=== PATIENT | male | born 1985 | race Caucasian/White ===

== ENCOUNTER 2020-07-26 22:32 | Inpatient (IN) ==
[2020-07-26] MEDS ORDERED: MULTI-VITAMIN INFUSION 10 ML, THIAMINE HCL 100 MG, FOLIC ACID 1 MG in SODIUM CHLORIDE 0... IV ONE (22:50)
[2020-07-26] MEDS ORDERED: dilTIAZem HCl 5 MG/ML 5 ML VIAL IV STA ×2 (22:50→23:32)
--- NOTE | 2020-07-26 22:58 | Emergency Department Note ---
Impression & Plan Atrial fibrillation with rapid ventricular response, Syncope and collapse ED Provider Note Name: GARY PIPER Age: 35 Sex: M Arrives Via: Ambulance Informant: Patient, EMS ED Provider: Kevin Nicolas MD Chief Complaint: Syncope Impression: Atrial Fibrillation with rapid ventricular response Syncope and Collapse Medical Decision Makin yr old male with history of alcoholism who arrives following syncopal/respiratory arrest. Complicating this is fact he was alcoholic when it happened, there were gummy bears in throat, and narcan given as he woke up. He does not remember choking and no report of choking prior to syncope. Narcan given as he woke up thus seems less likely that this was actual opioid overdose given no history and he is adamant no drug use. That said, given non-clarity initially he was given cardizem along with further IV fluids (banana bag). Patient not overtly ill appearing and not in extremis on arrival with stable BP thus no indication for immediate cardioversion. Discussion does seem he has been feeling a bit fatigued the last few days. No stroke findings on exam thus no indication for stroke alert/tpa at this time. Patient requiring 3 rounds IV cardizem and thus cardizem gtt and heparin ordered. HR steady in 80s thus cardizem gtt held. Just as heparin about to be started he converted to NSR. I opted to hold heparin and defer further anticoagulation to hospitalist team. He will need further monitoring and hospitalization regardless at this time. Triage/Nursing Notes reviewed by Me Additional history obtained from nursing/ems Differentials:Vasovagal event, dehydration, infection, hypoglycemia, electrolyte abnormalities, cardiac sources, intracerebral event, pulmonary embolism, seizure, toxicologic, neurologic, as well as other pathologies. Vital Signs: reviewed and remarkable for tachycardia Interventions: Saline lock, Cardizem 15mg IV x 3, Nss bolus 1 L, Banana bag 1 L IV Labs:Reviewed and remarkable for +etoh, mild lft elevation Imaging:X ray results are stated below per my interpretation: Chest: 1 view: No infiltrate, no effusion, normal cardiac border. [facility] Radiologist interpretation reviewed by me: CT head no acute findings EKG:Per My Interpretation: Indication AMS: Afib RVR 163 bpm, qtc 484. No ischemia, mild intraventricular delay, no previous for comparison Cardiac/Tele Monitoring: Cardiac Monitoring: An Order was placed for continuous cardiac monitoring. The monitor shows a rate of 160 with a afib rhythm. Consults:Dr Kodi Shepherd hospitalist Plan: Disposition:Hospitalization. Condition: Good Prescriptions:none PDMP: n/a History of Present Illness:35 yr old male with alcoholism arrives for evaluation of syncope. Patient notes he was drinking etoh and eating ice cream. He remembers taking a handful of gummy bears and the next thing he was waking up next to EMS. EMS reports patient had witnessed syncope by parents, stopped breathing and turned blue. 911 called and provided airway care, removed handful of gummy bears from mouth/throat and gave narcan 2mg NA. EMS noted patient started waking up as Narcan given, rather than after it was given. Patient notes he currently feels a bit lightheaded, mildly dyspneic and foggy. He denies chest pain, headache, nausea, vomiting, back pain, neck pain, weakness, urinary/ bowel issues, leg swelling, rashes, fevers, chills, nor other symptoms. He has not been tested nor been around any one he knows has covid. No recent trauma, injuries, falls. He drinks shots of vodka daily. Given Narcan and 1 L NSS en route. Denies history of irregular HR. He is certain he has been using no drugs. ROS: See above HPI for pertinent positives & negatives. A total of 10 systems reviewed and were otherwise negative. Past Medical History:Alcoholism Past Surgical History:Hernia repair Family History:Father: Lyme disease Social History:Daily etoh, vapes tobacco, works as machinist first class, lives with parents, unmarried Home Medications:None Allergies:NKDA Vitals:Blood Pressure: 127/105, Pulse 176, RR 25, T 36.9C, O2 96% on RA Physical Exam: GENERAL: Patient is tired/dishevelled appearing and in minimal distress. EYES: No scleral icterus, unremarkable pupils. ENT: Mucous membranes moist, no nasal congestion. NECK: No masses appreciated, nomeningismus, trachea is midline. RESPIRATORY: No dyspnea. Clear to auscultation and equal bilaterally. No wheeze, no rhonchi. CARDIOVASCULAR: Tachy, irregular.No murmurs, rubs, gallops appreciated. GASTROINTESTINAL: Abdomen soft, non-tender, no peritonitis.Bowel sounds positive.No masses appreciated. BACK: No midline tenderness, no CVA tenderness EXTREMITIES: Normal motion all extremities, no cyanosis, no edema. No calf swelling nor TTP NEUROLOGIC: Alert and oriented, no acute motor or sensory deficits, no focal weakness, cranial nerves grossly intact. SKIN: No rash, no jaundice, no diaphoresis. PSYCH: Appropriate GCS: 15 ED Course: Times/Reassessments: Feeling well. Multiple round cardizem to keep HR under control before reverting to NSR. Critical Care: I have personally spent 35 minutes of critical care time in the direct management of this patient. Afib RVR requiring multiple rounds cardizem. This was a life/limb threatening event. This 35 minutes is in excess of all separately billable procedures. 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 Beliefs That Will Affect Care: None Current Living Situation: Family Current Living Situation Comment: Parents Other Information That Helps Us Care for You: No Feels Safe at Home: Yes Safety Concerns: Feels Safe At This Time Assistive Devices: None Allergies Allergies Allergy/AdvReac Type Severity Reaction Status Date / Time No Known Allergies Allergy Mild Unverified 07/26/20 23:02 Home Meds Home Medications Medication Instructions Recorded Confirmed No Known Home Medications 07/26/20 07/26/20 Results & Data (ED) Vital Signs Vital Signs - 24 hr 07/26/20 22:39 07/26/20 22:42 07/26/20 22:49 Temperature 36.7 C Temperature Source Oral Pulse Rate 176 H 156 H 145 H Pulse Rate from SpO2 Sensor 139 H 123 H Respiratory Rate 24 16 15 Respiratory Effort / Characteristics Non-Labored Spontaneous Respiratory Depth Normal Respiratory Pattern Regular Blood Pressure 127/105 H 127/105 H 125/94 Blood Pressure Mean 112 112 104 Blood Pressure Position Sitting Pulse Oximetry 96 98 97 Oxygen Delivery Method Room Air Sepsis Recent Fever Within 48 Hours No Sepsis New/Unexplained Change in Mental Status No Sepsis Action Taken by Nursing Physician Notified 07/26/20 23:01 07/26/20 23:15 07/26/20 23:30 Temperature Temperature Source Pulse Rate 156 H 114 H 119 H Pulse Rate from SpO2 Sensor 124 H 103 H 98 H Respiratory Rate 18 15 14 Respiratory Effort / Characteristics Respiratory Depth Respiratory Pattern Blood Pressure 128/106 H 111/79 Blood Pressure Mean 113 89 Blood Pressure Position Pulse Oximetry 96 93 92 Oxygen Delivery Method Sepsis Recent Fever Within 48 Hours Sepsis New/Unexplained Change in Mental Status Sepsis Action Taken by Nursing 07/26/20 23:45 07/27/20 00:00 07/27/20 00:15 Temperature Temperature Source Pulse Rate 105 H 102 H 91 H Pulse Rate from SpO2 Sensor 104 H 87 Respiratory Rate 21 14 13 Respiratory Effort / Characteristics Respiratory Depth Respiratory Pattern Blood Pressure 118/80 Blood Pressure Mean 92 Blood Pressure Position Pulse Oximetry 97 93 Oxygen Delivery Method Sepsis Recent Fever Within 48 Hours Sepsis New/Unexplained Change in Mental Status Sepsis Action Taken by Nursing 07/27/20 00:30 07/27/20 00:45 07/27/20 01:00 Temperature Temperature Source Pulse Rate 106 H 90 100 H Pulse Rate from SpO2 Sensor 103 H 84 101 H Respiratory Rate 12 16 17 Respiratory Effort / Characteristics Respiratory Depth Respiratory Pattern Blood Pressure 105/79 120/95 Blood Pressure Mean 87 103 Blood Pressure Position Pulse Oximetry 97 98 97 Oxygen Delivery Method Sepsis Recent Fever Within 48 Hours Sepsis New/Unexplained Change in Mental Status Sepsis Action Taken by Nursing 07/27/20 01:30 Temperature Temperature Source Pulse Rate 89 Pulse Rate from SpO2 Sensor 89 Respiratory Rate 17 Respiratory Effort / Characteristics Respiratory Depth Respiratory Pattern Blood Pressure 102/67 Blood Pressure Mean 78 Blood Pressure Position Pulse Oximetry 93 Oxygen Delivery Method Sepsis Recent Fever Within 48 Hours Sepsis New/Unexplained Change in Mental Status Sepsis Action Taken by Nursing Laboratory Data Result diagrams: 07/27/20 05:21 07/26/20 22:50 Lab Results 07/26/20 07/26/20 07/26/20 Range/Units 22:50 22:50 22:50 WBC 9.41 (4.8-10.8) K/uL RBC 4.50 L (4.7-6.1) M/uL Hgb 15.1 (14.0-18.0) g/dL Hct 43.0 (42-52) % MCV 95.6 (80-100) fL MCH 33.6 (25-34) pg MCHC 35.1 (32-36) g/dL RDW Std Deviation 43.6 (36.4-46.3) fL RDW Coeff of Eric 12.6 (11.5-14.5) % Plt Count 304 (130-400) K/uL MPV 9.6 (7.4-10.4) fL Immature Gran % (Auto) 0.2 % Neut % (Auto) 67.8 % Lymph % (Auto) 25.4 % [place] % (Auto) 5.5 % Eos % (Auto) 1.0 % Baso % (Auto) 0.1 % Neut # (Auto) 6.38 (1.4-6.5) K/uL Lymph # (Auto) 2.39 (1.2-3.4) K/uL Berks # (Auto) 0.52 (0.11-0.59) K/uL Eos # (Auto) 0.09 (0-0.5) K/uL Baso # (Auto) 0.01 (0-0.2) K/uL Immature Gran # (Auto) 0.02 (0.00-0.02) K/uL PT 10.0 (9.0-12.0) Seconds INR 0.9 (0.9-1.1) D-Dimer 200 (0-500) ug/L FEU Sodium 138 (136-145) mmol/L Potassium 3.7 (3.5-5.1) mmol/L Chloride 106 (98-107) mmol/L Carbon Dioxide 28 (21-32) mmol/L Anion Gap 5.0 (3-11) BUN 16 (7-18) mg/dl Creatinine 1.05 (0.6-1.4) mg/dl Est Cr Clr Drug Dosing 102.1 ml/min Est GFR ( Amer) 105.3 Est GFR (Non-Af Amer) 90.9 BUN/Creatinine Ratio 14.9 (10-20) Glucose 133 H (70-99) mg/dl Calcium 8.8 (8.5-10.1) mg/dl Magnesium 1.8 (1.8-2.4) mg/dl Total Bilirubin 0.3 (0.2-1) mg/dl Direct Bilirubin < 0.1 (0-0.2) mg/dl AST 45 H (15-37) U/L ALT 94 H (12-78) U/L Alkaline Phosphatase 66 (45-117) U/L Total Creatine Kinase 139 (39-308) U/L CK-MB (CK-2) 1.7 (0.5-3.6) ng/ml CK/CKMB % Calc 1.2 (0-3.0) Troponin I < 0.015 (0-0.045) ng/ml Total Protein 8.1 (6.4-8.2) gm/dl Albumin 3.9 (3.4-5.0) gm/dl Lipase 217 (73-393) U/L Urine Color Urine Appearance (Clear) Urine pH (4.5-7.5) Ur Specific [place] (1.000-1.030) Urine Protein (Negative) Urine Glucose (UA) (Negative) Urine Ketones (Negative) Urine Blood (Negative) Urine Nitrite (Negative) Urine Bilirubin (Negative) Urine Urobilinogen (Negative) Ur Leukocyte Esterase (Negative) Urine Opiates Screen (Neg) Ur Methadone, Qual (Neg) Urine Barbiturates (Neg) Ur Phencyclidine (PCP) (Neg) U Amphetamin/Meth Scrn (Neg) MDMA (Ecstasy) Screen (Neg) U Benzodiazepines Scrn (Neg) Ur Cocaine Metabolite (Neg) U Marijuana (THC) Screen (Neg) Ethyl Alcohol mg/dL (0-3) mg/dl COVID-19 Eval Order SARS-CoV-2, RNA, NAAT (NEGATIVE) 07/26/20 07/26/20 07/26/20 Range/Units 22:50 22:50 23:04 WBC (4.8-10.8) K/uL RBC (4.7-6.1) M/uL Hgb (14.0-18.0) g/dL Hct (42-52) % MCV (80-100) fL MCH (25-34) pg MCHC (32-36) g/dL RDW Std Deviation (36.4-46.3) fL RDW Coeff of Eric (11.5-14.5) % Plt Count (130-400) K/uL MPV (7.4-10.4) fL Immature Gran % (Auto) % Neut % (Auto) % Lymph % (Auto) % [place] % (Auto) % Eos % (Auto) % Baso % (Auto) % Neut # (Auto) (1.4-6.5) K/uL Lymph # (Auto) (1.2-3.4) K/uL [place] # (Auto) (0.11-0.59) K/uL Eos # (Auto) (0-0.5) K/uL Baso # (Auto) (0-0.2) K/uL Immature Gran # (Auto) (0.00-0.02) K/uL PT (9.0-12.0) Seconds INR (0.9-1.1) D-Dimer (0-500) ug/L FEU Sodium (136-145) mmol/L Potassium (3.5-5.1) mmol/L Chloride (98-107) mmol/L Carbon Dioxide (21-32) mmol/L Anion Gap (3-11) BUN (7-18) mg/dl Creatinine (0.6-1.4) mg/dl Est Cr Clr Drug Dosing ml/min Est GFR ( Amer) Est GFR (Non-Af Amer) BUN/Creatinine Ratio (10-20) Glucose (70-99) mg/dl Calcium (8.5-10.1) mg/dl Magnesium (1.8-2.4) mg/dl Total Bilirubin (0.2-1) mg/dl Direct Bilirubin (0-0.2) mg/dl AST (15-37) U/L ALT (12-78) U/L Alkaline Phosphatase (45-117) U/L Total Creatine Kinase (39-308) U/L CK-MB (CK-2) (0.5-3.6) ng/ml CK/CKMB % Calc (0-3.0) Troponin I (0-0.045) ng/ml Total Protein (6.4-8.2) gm/dl Albumin (3.4-5.0) gm/dl Lipase (73-393) U/L Urine Color Yellow Urine Appearance Clear (Clear) Urine pH 6.5 (4.5-7.5) Ur Specific [place] 1.011 (1.000-1.030) Urine Protein Negative (Negative) Urine Glucose (UA) Negative (Negative) Urine Ketones Negative (Negative) Urine Blood Negative (Negative) Urine Nitrite Negative (Negative) Urine Bilirubin Negative (Negative) Urine Urobilinogen Negative (Negative) Ur Leukocyte Esterase Negative (Negative) Urine Opiates Screen Neg (Neg) Ur Methadone, Qual Neg (Neg) Urine Barbiturates Neg (Neg) Ur Phencyclidine (PCP) Neg (Neg) U Amphetamin/Meth Scrn Neg (Neg) MDMA (Ecstasy) Screen Neg (Neg) U Benzodiazepines Scrn Neg (Neg) Ur Cocaine Metabolite Neg (Neg) U Marijuana (THC) Screen Neg (Neg) Ethyl Alcohol mg/dL 89.0 H (0-3) mg/dl COVID-19 Eval Order SARS-CoV-2, RNA, NAAT (NEGATIVE) 07/26/20 07/26/20 Range/Units 23:59 23:59 WBC (4.8-10.8) K/uL RBC (4.7-6.1) M/uL Hgb (14.0-18.0) g/dL Hct (42-52) % MCV (80-100) fL MCH (25-34) pg MCHC (32-36) g/dL RDW Std Deviation (36.4-46.3) fL RDW Coeff of Eric (11.5-14.5) % Plt Count (130-400) K/uL MPV (7.4-10.4) fL Immature Gran % (Auto) % Neut % (Auto) % Lymph % (Auto) % [place] % (Auto) % Eos % (Auto) % Baso % (Auto) % Neut # (Auto) (1.4-6.5) K/uL Lymph # (Auto) (1.2-3.4) K/uL [place] # (Auto) (0.11-0.59) K/uL Eos # (Auto) (0-0.5) K/uL Baso # (Auto) (0-0.2) K/uL Immature Gran # (Auto) (0.00-0.02) K/uL PT (9.0-12.0) Seconds INR (0.9-1.1) D-Dimer (0-500) ug/L FEU Sodium (136-145) mmol/L Potassium (3.5-5.1) mmol/L Chloride (98-107) mmol/L Carbon Dioxide (21-32) mmol/L Anion Gap (3-11) BUN (7-18) mg/dl Creatinine (0.6-1.4) mg/dl Est Cr Clr Drug Dosing ml/min Est GFR ( Amer) Est GFR (Non-Af Amer) BUN/Creatinine Ratio (10-20) Glucose (70-99) mg/dl Calcium (8.5-10.1) mg/dl Magnesium (1.8-2.4) mg/dl Total Bilirubin (0.2-1) mg/dl Direct Bilirubin (0-0.2) mg/dl AST (15-37) U/L ALT (12-78) U/L Alkaline Phosphatase (45-117) U/L Total Creatine Kinase (39-308) U/L CK-MB (CK-2) (0.5-3.6) ng/ml CK/CKMB % Calc (0-3.0) Troponin I (0-0.045) ng/ml Total Protein (6.4-8.2) gm/dl Albumin (3.4-5.0) gm/dl Lipase (73-393) U/L Urine Color Urine Appearance (Clear) Urine pH (4.5-7.5) Ur Specific [place] (1.000-1.030) Urine Protein (Negative) Urine Glucose (UA) (Negative) Urine Ketones (Negative) Urine Blood (Negative) Urine Nitrite (Negative) Urine Bilirubin (Negative) Urine Urobilinogen (Negative) Ur Leukocyte Esterase (Negative) Urine Opiates Screen (Neg) Ur Methadone, Qual (Neg) Urine Barbiturates (Neg) Ur Phencyclidine (PCP) (Neg) U Amphetamin/Meth Scrn (Neg) MDMA (Ecstasy) Screen (Neg) U Benzodiazepines Scrn (Neg) Ur Cocaine Metabolite (Neg) U Marijuana (THC) Screen (Neg) Ethyl Alcohol mg/dL (0-3) mg/dl COVID-19 Eval Order Covid19 [facility]Now [facility] SARS-CoV-2, RNA, NAAT NEGATIVE (NEGATIVE) Administered Medications Sodium Chloride (Nss 1000ml) 1,000 mls @ 100 mls/hr IV .Q10H JUSTINE Stop: 08/26/20 02:11 Last Admin: 07/27/20 03:07 Dose: 100 mls/hr Documented by: [id number] Discontinued Medications Diltiazem HCl (Diltiazem Hcl 5 Mg/Ml 5 Ml Vial) 15 mg IV NOW STA Stop: 07/26/20 22:51 Last Admin: 07/26/20 23:00 Dose: 15 mg Documented by: [id number] Cosigned by: [id number] Diltiazem HCl (Diltiazem Hcl 5 Mg/Ml 5 Ml Vial) 15 mg IV NOW STA Stop: 07/26/20 23:33 Last Admin: 07/26/20 23:43 Dose: 15 mg Documented by: [id number] Cosigned by: [id number] Diltiazem HCl (Diltiazem Hcl 5 Mg/Ml 5 Ml Vial) 15 mg IV NOW STA Stop: 07/27/20 00:21 Last Admin: 07/27/20 00:25 Dose: 15 mg Documented by: [id number] Cosigned by: [id number] Gabapentin (Gabapentin 600 Mg Tab) 1,200 mg PO NOW ONE Stop: 07/27/20 02:13 Last Admin: 07/27/20 03:08 Dose: 1,200 mg Documented by: [id number] Heparin Sodium (Porcine) (Heparin Sod (Porcine) 1000 Unit/Ml 10 Ml Vial) Confirm Administered Dose 10,000 units .ROUTE .STK-MED ONE Stop: 07/27/20 00:50 Last Admin: 07/27/20 01:43 Dose: Not Given Documented by: [id number] Heparin Sodium/Dextrose (Heparin Iv Standard With Bolus) 1 ea IV NOW STA; Protocol Stop: 07/27/20 00:24 Last Admin: 07/27/20 01:43 Dose: Not Given Documented by: [id number] Multivitamins 10 ml/ Thiamine HCl 100 mg/ Folic Acid 1 mg/Sodium Chloride 1,011.2 mls @ 1,011.2 mls/hr IV .Q1H ONE Stop: 07/26/20 23:49 Last Infusion: 07/27/20 01:02 Dose: 0 mls/hr Documented by: [id number] Admin: 07/26/20 23:43 Dose: 1,011.2 mls/hr Documented by: [id number] Diltiazem HCl 125 mg/ Dextrose 125 mls @ 5 mls/hr IV .Q24H JUSTINE; Protocol Stop: 08/26/20 00:29 Last Admin: 07/27/20 01:42 Dose: Not Given Documented by: [id number] Heparin Sodium/Dextrose (Heparin Sodium/Dextrose) 25,000 units in 500 mls @ 0.02 mls/hr IV .Q24H JUSTINE; Protocol Stop: 08/26/20 00:29 Last Admin: 07/27/20 01:42 Dose: Not Given Documented by: [id number] Pantoprazole Sodium 80 mg/ (Dextrose) 100 mls @ 400 mls/hr IV ONE STA Stop: 07/27/20 00:37 Last Infusion: 07/27/20 01:31 Dose: 0 mls/hr Documented by: [id number] Admin: 07/27/20 01:02 Dose: 400 mls/hr Documented by: [id number] Miscellaneous (Stat Iv Infusion Titration Per Protocol) 1 ea N/A NOW STA Stop: 07/27/20 00:21 Last Admin: 07/27/20 01:42 Dose: Not Given Documented by: [id number] Discharge Plan Visit Data Chief Complaint: Cardiac Assessment Stated Complaint: OVERDOSE, CARDIAC ASSESSMENT ED Provider: Kevin Nicolas Discharge Problem: Atrial fibrillation with rapid ventricular response, Syncope and collapse Patient Disposition: Admitted As Inpatient Discharge Instructions Interventions: ED Discharge Assessment Last Done: 07/27/20 02:01
[2020-07-26 23:03] LABS: Basophils # (auto) 0.01 K/uL (0-0.2); Basophils % (auto) 0.1 %; Eosinophils # (auto) 0.09 K/uL (0-0.5); Hemoglobin 15.1 g/dL (14.0-18.0); Immature Granulocytes # (auto) 0.02 K/uL (0.00-0.02); Immature Granulocytes % (auto) 0.2 %; Lymphocytes # (auto) 2.39 K/uL (1.2-3.4); Lymphocytes % (auto) 25.4 %; Mean Corpuscular Hemoglobin 33.6 pg (25-34); Mean Corpuscular Hgb Conc 35.1 g/dL (32-36); Mean Corpuscular Volume 95.6 fL (80-100); Mean Platelet Volume 9.6 fL (7.4-10.4); Monocytes # (auto) 0.52 K/uL (0.11-0.59); Monocytes % (auto) 5.5 %; Neutrophils # (auto) 6.38 K/uL (1.4-6.5); Neutrophils % (auto) 67.8 %; Platelet Count 304 K/uL (130-400); RDW Coefficient of Variation 12.6 % (11.5-14.5); RDW Standard Deviation 43.6 fL (36.4-46.3); White Blood Count 9.41 K/uL (4.8-10.8)
[2020-07-26 23:06] LABS: Appearance Urine Clear (Clear); Bilirubin Urine Negative (Negative); Blood Urine Negative (Negative); Color Urine Yellow; Glucose Urine UA Negative (Negative); Ketones Urine Negative (Negative); Leukocyte Esterase Urine Negative (Negative); Nitrite Urine Negative (Negative); Protein Urine Negative (Negative); Specific Gravity Urine 1.011 (1.000-1.030); Urobilinogen Urine Negative (Negative); pH Urine 6.5 (4.5-7.5)
[2020-07-26 23:12] LABS: D Dimer 200 ug/L FEU (0-500); INR 0.9 (0.9-1.1)
[2020-07-26 23:18] LABS: Alanine Aminotransferase 94 U/L (12-78); Albumin Level 3.9 gm/dl (3.4-5.0); Aspartate Aminotransferase 45 U/L (15-37); BUN Creatinine Ratio 14.9 (10-20); Bilirubin Direct < 0.1 mg/dl (0-0.2); Blood Urea Nitrogen 16 mg/dl (7-18); Calcium 8.8 mg/dl (8.5-10.1); Carbon Dioxide 28 mmol/L (21-32); Chloride 106 mmol/L (98-107); Creatinine Clr Calc Pharmacy 102.1 ml/min; Est GFR (African American) 105.3; Est GFR (Non-African American) 90.9; Glucose 133 mg/dl (70-99); Lipase 217 U/L (73-393); Magnesium 1.8 mg/dl (1.8-2.4); Potassium 3.7 mmol/L (3.5-5.1); Sodium 138 mmol/L (136-145)
[2020-07-26 23:23] LABS: Alkaline Phosphatase 66 U/L (45-117); Bilirubin,Total 0.3 mg/dl (0.2-1); Creatine Kinase 139 U/L (39-308); Creatine Kinase MB 1.7 ng/ml (0.5-3.6); Total Protein 8.1 gm/dl (6.4-8.2); Troponin I < 0.015 ng/ml (0-0.045)
[2020-07-26 23:28] LABS: Amphetamines+Metham, Urine Neg (Neg); Barbiturates, Urine Neg (Neg); Benzodiazepine, Urine Neg (Neg); Cocaine, Urine Neg (Neg); MDMA (Ecstacy), Urine Neg (Neg); Methadone, Urine Neg (Neg); Opiate, Urine Neg (Neg); Phencyclidine, Urine Neg (Neg)
[2020-07-27] MEDS ORDERED: STAT IV Infusion **Titration per Protocol STA (00:20)
[2020-07-27] MEDS ORDERED: dilTIAZem HCl 5 MG/ML 5 ML VIAL IV STA (00:20)
[2020-07-27] MEDS ORDERED: PANTOprazole 80 MG in DEXTROSE 5% 100 ML IV STA (00:23)
[2020-07-27] MEDS ORDERED: HEPARIN SODIUM/DEXTROSE 25,000 UNITS/500 ML BAG IV SCH ×2 (00:30→02:12)
[2020-07-27] MEDS ORDERED: dilTIAZem HCL 125 MG in DEXTROSE 5% 100 ML IV SCH (00:30)
[2020-07-27] MEDS ORDERED: HEPARIN SOD (PORCINE) 1000 UNIT/ML 10 ML VIAL ONE (00:49)
[2020-07-27] MEDS ORDERED: LORazepam 3 MG/6 ML VIAL IV PRN (02:12)
[2020-07-27] MEDS ORDERED: ACETAMINOPHEN 325 MG TAB PO PRN (02:12)
[2020-07-27] MEDS ORDERED: Heparin IV Standard *NO* Bolus ONE (02:12)
[2020-07-27] MEDS ORDERED: ONDANSETRON INJ 2 MG/ML 2 ML VIAL IV PRN (02:12)
[2020-07-27] MEDS ORDERED: LORazepam 1 MG/2 ML VIAL IV PRN (02:12)
[2020-07-27] MEDS ORDERED: ATIVAN IV ALCOHOL WITHDRAWL IV PRN (02:12)
[2020-07-27] MEDS ORDERED: LORazepam 2 MG/4 ML VIAL IV PRN (02:12)
[2020-07-27] MEDS ORDERED: METOPROLOL TARTRATE 1 MG/ML VIAL IV PRN (02:12)
[2020-07-27] MEDS ORDERED: NITROGLYCERIN SL 0.4 MG/TAB TAB SL PRN (02:12)
[2020-07-27] MEDS ORDERED: GABAPENTIN 1200MG ALCOHOL WITHDRAWAL LOAD PO STA (02:12)
[2020-07-27] MEDS ORDERED: GABAPENTIN 600 MG TAB PO ONE (02:12)
[2020-07-27] MEDS: SODIUM CHLORIDE 0.9% 1000ML 1,000 ML IV SCH ×2 (03:07→11:45)
--- NOTE | 2020-07-27 03:14 | History and Physical Report ---
DATE OF ADMISSION: 07/27/2020 CHIEF COMPLAINT: Syncope, rapid atrial fibrillation HISTORY OF PRESENT ILLNESS: A 35-year-old male with no significant past medical history, ongoing alcoholism, drinks 2 drinks every day for last 5-6 years, today drank 2 beers and also 2 mixed drinks. After that he ate a cake, then he put some gummies in his mouth and the next thing he knows was EMS waking him up. He lives with his parents. The parents called EMS. He do not know how long he was on the floor. As per the EMS they noticed some of gummies in the throat and they tried to give Narcan. He woke up even before the Narcan was given. The patient denies any drug abuse. Denies any seizure-like activity, no biting of tongue, no incontinence of urine or stools. The patient since last 1 week he was feeling a little bit fatigued, weak, has some mild headache. Currently in the ER, he was found to be in rapid afib, heart rate in 160s, when he came in. Received IV Cardizem and went back to sinus rhythm. Denies any palpitations, no chest pain, no blurred vision, no double vision, no earache, no runny nose, no sore throat, no loss of sense of smell or taste. No cough, no shortness of breath. Appetite is okay. Denies any exposure to COVID patients. No nausea, no vomiting, no abdominal pain. Normal bowel and bladder movements. No rash. Currently resting comfortably. ALLERGIES: No known drug allergies. PAST MEDICAL HISTORY: As mentioned above. PAST SURGICAL HISTORY: Repair of inguinal hernia. MEDICATIONS: None. FAMILY HISTORY: Significant for father had prostate cancer.Maternal grandfather had prostate cancer, colon cancer, brain tumor. Maternal grandfather, diabetes. SOCIAL HISTORY: Single, lives with parents. Former smoker, quit in 2008, smoked 0.2 packs a day for 8 years, currently says he drinks 2 beers every day for last 5-6 years. Denies any drug abuse. REVIEW OF SYMPTOMS: As per HPI. Rest of review of systems negative. PHYSICAL EXAMINATION: GENERAL: The patient is of moderate build, not in acute distress. VITAL SIGNS: Temperature 36.7, pulse when he came in was less than 170s to 150s, currently 178, respiratory rate 20, blood pressure 119/74, oxygen 96% room air. HEENT: Pupils equal, round, reactive to light. Oral mucosa moist. NECK: No JVD, no neck masses. CARDIOVASCULAR: S1, S2, regular rate and rhythm, no murmur, no gallop. RESPIRATORY SYSTEM: Normal AP diameter. No accessory muscle use. No wheezing, no crackles. ABDOMEN: Soft, bowel sounds present, nontender. No distention. CENTRAL NERVOUS SYSTEM: Cranial nerves II-XII grossly intact. Nonfocal. EXTREMITIES: No edema, no erythema. LABORATORY DATA: WBC 9.4, hemoglobin 15.1, hematocrit 43, platelets 304. PT 10, INR 0.9. D-dimer 200. Sodium 138, potassium 3.7, chloride 106, bicarbonate 28, BUN 16, creatinine 1.05, serum glucose 133, calcium 8.8, magnesium 1.8, total bilirubin 0.3, direct bilirubin less than 0.1, AST 45, ALT 94, alkaline phosphatase 66, total creatinine kinase 113. Troponin I less than 0.015. Lipase 217. Urinalysis negative. Urine drug screen positive for ethyl alcohol 189. SARS-CoV-2 RNA negative. Chest x-ray, no acute findings seen. CT of the head, preliminary report, no acute findings. EKG when he came in, he was in AFib with RVR at rate of 163. Repeat EKG is normal sinus rhythm at 90, nonspecific ST changes in inferior leads. ASSESSMENT AND PLAN: This is a 35-year-old male who presents with syncope and fall, found in rapid atrial fibrillation. 1. Syncope, could be vasovagal, could be from dysrhythmia, but there was no seizure activity. Initial CT of the head is unremarkable when he came in. EKG showed rapid AFib. Currently back in sinus rhythm. We will observe in tele floor. Serial enzymes, echocardiogram, consult cardiology in a.m., found to have rapid AFib, converted to sinus rhythm after a dose of IV Cardizem in the ER. We will closely monitor in tele floor. He is feeling weak and fatigued for the last week, place him on IV Lopressor p.r.n., If a fib returns will start on on IV heparin, follow echocardiogram, await cardiac input. 2. Alcoholism. The patient says he is drinking 2 beers everyday for the last few years. Yesterday he drank 2 beers and 2 mixed drinks of alcohol when he came to the ER. We will monitor for any alcohol withdrawal. Placed him on banana bag in the ER. Continue alcohol withdrawal protocol and IV Ativan p.r.n., IV thiamine, IV folic acid and monitor for withdrawals. 3. Deep venous thrombosis prophylaxis, sequential compression devices, currently on IV heparin. DISPOSITION: Closely monitor in the tele floor. Level 1 full code. Expect discharge home and follow with family doctor. NICHOLAS
[2020-07-27 05:40] LABS: Basophils # (auto) 0.01 K/uL (0-0.2); Basophils % (auto) 0.1 %; Eosinophils # (auto) 0.02 K/uL (0-0.5); Eosinophils % (auto) 0.3 %; Hematocrit (blood only) 40.9 % (42-52); Hemoglobin 14.2 g/dL (14.0-18.0); Immature Granulocytes # (auto) 0.01 K/uL (0.00-0.02); Immature Granulocytes % (auto) 0.1 %; Lymphocytes # (auto) 1.68 K/uL (1.2-3.4); Lymphocytes % (auto) 22.2 %; Mean Corpuscular Hemoglobin 32.9 pg (25-34); Mean Corpuscular Hgb Conc 34.7 g/dL (32-36); Mean Corpuscular Volume 94.7 fL (80-100); Mean Platelet Volume 9.5 fL (7.4-10.4); Monocytes # (auto) 0.68 K/uL (0.11-0.59); Neutrophils # (auto) 5.16 K/uL (1.4-6.5); Neutrophils % (auto) 68.3 %; Platelet Count 274 K/uL (130-400); RDW Coefficient of Variation 12.6 % (11.5-14.5); RDW Standard Deviation 43.9 fL (36.4-46.3); Red Blood Count 4.32 M/uL (4.7-6.1); White Blood Count 7.56 K/uL (4.8-10.8)
[2020-07-27 06:16] LABS: BUN Creatinine Ratio 14.2 (10-20); Calcium 8.6 mg/dl (8.5-10.1); Creatinine Clr Calc Pharmacy 137.2 ml/min; Est GFR (African American) 134.6; Est GFR (Non-African American) 116.1
[2020-07-27 06:40] LABS: Troponin I 0.051 ng/ml (0-0.045)
--- NOTE | 2020-07-27 08:11 | CT Scan Report ---
CT SCAN OF THE BRAIN WITHOUT IV CONTRAST CLINICAL HISTORY: Syncope. Headache. COMPARISON STUDY: No priors. TECHNIQUE: Unenhanced axial CT scan of the brain is performed from the vertex to the skull base. A d ose lowering technique was utilized adhering to the principles of ALARA. CT DOSE: 614.27 mGy.cm FINDINGS: Brain parenchyma: The brain parenchyma is normal in appearance. There is no hemorrhage, mass effect, or evidence of acute territorial ischemia by CT criteria. York-white matter differentiation is preser natalia. No extra-axial fluid collection is seen. Ventricles, sulci, cisterns: Normal in configuration. Intracranial vasculature: The visualized intracranial vasculature at the skull base is normal in appe arance. Calvarium: Unremarkable. Sinuses and mastoids: The visualized paranasal sinuses are clear. The mastoid air cells are well pneu matized. Orbits: The bony orbits are grossly intact. IMPRESSION: No acute intracranial abnormality. ACT 112: Negative or not required by law. Electronically signed by: Wilman Dumont M.D. 07/27/2020 8:10 AM
--- NOTE | 2020-07-27 08:56 | XRay Report ---
SINGLE VIEW CHEST CLINICAL HISTORY: Syncope. Change in mental status. FINDINGS: An AP, portable, upright chest radiograph is compared to study dated 11/27/2006. The cardiom ediastinal silhouette is unremarkable. The lungs and pleural spaces are clear. No pneumothorax is see n. The bony thorax is grossly intact. IMPRESSION: No active disease in the chest. ACT 112: Negative or not required by law. Electronically signed by: Wilman Dumont M.D. 07/27/2020 8:54 AM
[2020-07-27] MEDS ORDERED: THIAMINE HCL 100 MG in SYRINGE 9 ML IV SCH (09:00)
[2020-07-27] MEDS ORDERED: FOLIC ACID 1 MG in SYRINGE 9.8 ML IV SCH (09:00)
[2020-07-27] MEDS ORDERED: METOPROLOL TARTRATE 25 MG TAB PO SCH (09:00)
[2020-07-27] MEDS ORDERED: GABAPENTIN 600 MG TAB PO SCH (10:00)
--- NOTE | 2020-07-27 11:14 | Electrocardiogram Report ---
Test Reason : Blood Pressure : / mmHG Vent. Rate : 163 BPM Atrial Rate : 170 BPM P-R Int : 000 ms QRS Dur : 088 ms QT Int : 294 ms P-R-T Axes : 000 -01 046 degrees QTc Int : 484 ms Atrial flutter with rapid ventricular response Abnormal ECG No previous ECGs available Confirmed by Juan Sahu ([id number]) on 07/27/2020 11:14:26 AM Referred By: REFERRED SELF Confirmed By:Juan Sahu
--- NOTE | 2020-07-27 11:17 | Electrocardiogram Report ---
Test Reason : Blood Pressure : / mmHG Vent. Rate : 090 BPM Atrial Rate : 090 BPM P-R Int : 170 ms QRS Dur : 098 ms QT Int : 342 ms P-R-T Axes : 050 000 040 degrees QTc Int : 418 ms Normal sinus rhythm Normal ECG When compared with ECG of 26-JUL-2020 22:39, (unconfirmed) Sinus rhythm has replaced Atrial flutter Vent. rate has decreased BY 73 BPM Confirmed by Juan Sahu ([id number]) on 07/27/2020 11:17:00 AM Referred By: REFERRED SELF Confirmed By:Juan Sahu
--- NOTE | 2020-07-27 11:56 | Cardiology Consultation ---
Date of Consultation July 27, 2020 Assessment & Plan (1) Atrial fibrillation with rapid ventricular response: (2) Syncope and collapse: Based on the history and findings thus far, it would appear that the patient lost consciousness due to a respiratory arrest from acute airway obstruction, choking on gummy bear candy in the setting of alcohol intoxication. Patient was in atrial fibrillation with rapid ventricular response upon arrival, with spontaneous conversion to sinus rhythm after receiving IV diltiazem. Follow-up EKG is within normal limits, and patient has had an echocardiogram with no evidence of structural heart disease per my personal review of the images. His initial troponin I was undetectable, the second measurement performed at 5:21 AM was minimally elevated at 0.51 NG per mL, third measurement of 0.034 NG per mL(which is within normal limits). I believe the minimal elevation noted on the second measurement was due to myocardial strain in the setting of atrial fibrillation with very rapid ventricular response, transient hypoxia. The level has since trended down. As noted, I believe we have an explanation for the patient's transient loss of postural tone/consciousness. Regards to atrial fibrillation, his [id number] score os 0 , suggestive of a low risk of stroke. It is difficult to determine if the atrial fibrillation was lone atrial fibrillation, was has had paroxysmal atrial fibrillation. Consider discharge on metoprolol succinate 25 mg daily, and would recommend at 2 week Zio monitor as an outpatient for further assessment. In terms of stroke prophylaxis, his estimated risk of cardioembolic stroke is low. Most recent treatment guidelines suggest that the prophylactic benefit of aspirin in the situation is negligible and given his low risk of stroke, I would proceed without systemic anticoagulation at present. I will arrange outpatient monitor and cardiology follow up visit in about 1 month so we have the monitor results back then. Patient counseled that atrial fibrillation is associated with alcohol use, and cutting back intake / cessation is in the best interest of his health. History of Present Illness Attending Physician: Jenniffer Escobar MD History of Present Illness Mr Lewis is a 35-year-old male seen in cardiology consultation per the request of Dr. Mariee for the evaluation of syncope and atrial fibrillation. Patient was reportedly in his normal state of health last night. He had approximately 4 alcoholic beverages, and was eating ice cream and gummy bear candy. He reportedly lost consciousness, and became cyanotic. The events were witnessed by his parents, EMS was summoned, and on arrival, Narcan was administered due to concerns of opioid ingestion, however patient was also found to have gummy bear candies obstructing his airway which were subsequently removed and patient regained consciousness. His presenting heart rate was 176 bpm at 2239. EKG performed at that time revealed atrial fibrillation versus atrial flutter with rapid ventricular response of 163 bpm. The patient reportedly received diltiazem 15 mg IV x3 doses, with subsequent conversion to sinus rhythm. On telemetry, conversion to sinus rhythm without pauses noted at 12:54 AM this morning. Initially, sinus rhythm in the range of 90 to 100 bpm was noted, but as the honing machine set up operator tool hours progressed, he has been in sinus rhythm with a rate ranging from 70 to 80 bpm. During my interview with the patient today, he states he does not recollect much of the events from last evening. States he felt well prior to the event. He does note that occasionally he perhaps feels palpitations but he is not sure. PMH: Concerns of chronic alcohol ingestion PSH: Repair of inguinal hernia Social History: Single, lives with parents. Quit smoking approximately 10 years ago. Daily alcohol use, 2 drinks per day. Denies drug ingestion. Family History: No family history of heart disease. 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 Beliefs That Will Affect Care: None marital status: Single Current Living Situation: Family Current Living Situation Comment: Parents Other Information That Helps Us Care for You: No Feels Safe at Home: Yes Safety Concerns: Feels Safe At This Time Assistive Devices: None Review of Systems Review of Systems: All systems reviewed & are unremarkable except as noted in HPI & below Physical Exam Physical Exam: Temp Pulse Resp BP Pulse Ox 36.6 C 61 20 154/102 H 97 07/27/20 11:42 07/27/20 11:42 07/27/20 11:42 07/27/20 11:42 07/27/20 11:42 Constitutional: WD/WN, vitals as above Respiratory: normal respiratory effort, lungs clear to auscultation Cardiovascular: RRR, no murmur, no edema Gastrointestinal (Abdomen): normal bowel sounds, soft, nontender, no hepatosplenomegaly Neurologic: PERRL, EOMI, accommodation nl, no face palsy, no dysarthria Results & Data ([facility]) Vital Signs (Past 12 Hours) Vital Signs Temp Pulse Pulse Resp BP BP Pulse Ox 07/27/20 08:01 36.8 C 78 20 136/83 96 07/27/20 08:00 88 07/27/20 02:19 36.8 C 90 20 148/87 H 98 07/27/20 02:01 78 20 119/74 96 07/27/20 01:30 89 17 102/67 93 07/27/20 01:00 100 H 17 120/95 97 07/27/20 00:45 90 16 98 07/27/20 00:30 106 H 12 105/79 97 07/27/20 00:15 91 H 13 93 07/27/20 00:00 102 H 14 118/80 97 07/26/20 23:45 105 H 21 Laboratory Results Cardiac Enzymes 07/26/20 07/27/20 Range/Units 22:50 05:21 AST 45 H (15-37) U/L CK-MB (CK-2) 1.7 (0.5-3.6) ng/ml Troponin I < 0.015 0.051 H* (0-0.045) ng/ml Coagulation 07/26/20 Range/Units 22:50 PT 10.0 (9.0-12.0) Seconds CBC 07/26/20 07/27/20 Range/Units 22:50 05:21 WBC 9.41 7.56 (4.8-10.8) K/uL RBC 4.50 L 4.32 L (4.7-6.1) M/uL Hgb 15.1 14.2 (14.0-18.0) g/dL Hct 43.0 40.9 L (42-52) % Plt Count 304 274 (130-400) K/uL Neut # (Auto) 6.38 5.16 (1.4-6.5) K/uL Lymph # (Auto) 2.39 1.68 (1.2-3.4) K/uL [place] # (Auto) 0.52 0.68 H (0.11-0.59) K/uL Eos # (Auto) 0.09 0.02 (0-0.5) K/uL Baso # (Auto) 0.01 0.01 (0-0.2) K/uL Comprehensive Metabolic Panel 07/26/20 07/27/20 Range/Units 22:50 05:21 Sodium 138 141 (136-145) mmol/L Potassium 3.7 4.0 (3.5-5.1) mmol/L Chloride 106 112 H (98-107) mmol/L Carbon Dioxide 28 28 (21-32) mmol/L BUN 16 11 (7-18) mg/dl Creatinine 1.05 0.78 (0.6-1.4) mg/dl Glucose 133 H 118 H (70-99) mg/dl Calcium 8.8 8.6 (8.5-10.1) mg/dl Direct Bilirubin < 0.1 (0-0.2) mg/dl AST 45 H (15-37) U/L ALT 94 H (12-78) U/L Alkaline Phosphatase 66 (45-117) U/L Total Protein 8.1 (6.4-8.2) gm/dl Albumin 3.9 (3.4-5.0) gm/dl Intake and Output 07/26/20 07/27/20 07/27/20 22:59 06:59 14:59 Intake Total 600 / 1711.2 1111.2 / 1711.2 863.333 / 863.333 Output Total 400 / 400 Balance 200 / 1311.2 1111.2 / 1311.2 863.333 / 863.333 Intake: IV 600 / 1711.2 1111.2 / 1711.2 863.333 / 863.333 Mvi Infusion 10 ml Vitamin B-1 1011.2 / 1011.2 100 mg Folvite 1 mg In Nss 1000ML 1,000 ml @ 1011.2 mls/hr IV .Q1H ONE Rx#:[id number] Protonix 80 mg In D5 100 ml @ 100 / 100 400 mls/hr IV ONE STA Rx#: [id number] Nss 1000ML 1,000 ml @ 100 mls/ 863.333 / 863.333 hr IV .Q10H JUSTINE Rx#:[id number] Left Antecubital 600 / 600 Oral 0 / 0 Output: Urine 400 / 400 Other: Other Intake Source NPO Weight 83 kg 85.4 kg Weight Measurement Method Built in Bedscale Standing Scale Diagnostic Findings Repeat EKG performed 07/27/2020 at 12:59 AM (tracing reviewed independently). Revealed normal sinus rhythm at 90 bpm, compared to the prior, sinus rhythm replaced atrial fibrillation/atrial flutter, ventricular rate has reduced by 73 bpm. Echocardiogram performed this morning and reviewed independently revealed normal left ventricular myocardial thickness, normal left ventricular wall motion without regional wall motion abnormalities, normal LVEF, 60-65%, the right ventricular chamber size and systolic function are normal, no significant valvular heart disease.
--- NOTE | 2020-07-27 16:54 | Hospitalist Progress Note ---
Date of Service July 27, 2020 Assessment & Plan (1) Syncope and collapse: Patient syncopized at home while intoxicated after drinking alcohol heavily, had food/gummy bear in his mouth, that blocked his airway acutely Causing hypoxia, irregular rapid A. fib/A. fib RVR heart rate was in 170 as per medics Patient regained consciousness as paramedics able to remove obstruction/Gummies from his airway. In the ER patient remained in A. fib, converted to normal sinus with 1 dose of IV Cardizem The floor patient remained in sinus with heart rate between 70low 100s. Rapid A. fib RVR Episode of paroxysmal A. fib, possibly secondary to alcohol withdrawal, acute h ypoxia secondary to airway obstruction. Normal sinus rhythm at present Echocardiogram shows no cardiomyopathy, normal LV function, normal wall motion, no valve pathology Patient did not had any episodes of recurrence of A. fib since admission Appreciate input from cardiology Patient started on metoprolol No indication for anticoagulation Patient will need to follow-up at agrees with cardiology clinic in 2 weeks for cardiac/vascular sonographer/zio patch Cardiology follow-up in 1 month to discuss report of cardiac/vascular sonographer Patient left AGAINST MEDICAL ADVICE Alcohol abuse/intoxication/alcohol withdrawal Admitted with alcohol intoxicated status with blood alcohol level 89 Patient started with [facility] alcohol withdrawal protocol. Left AGAINST MEDICAL ADVICE within 24 hours of admission Admission and Anticipated Discharge Date Admission Date: July 27, 2020 Subjective Follow-up visit for syncope/hypoxia/rapid A. fib RVR/alcohol intoxication/withdrawal. Patient remained in normal sinus rhythm with normal rate on monitor. Denies of any feeling of palpitation, dizzy spells no complaint of chest heaviness no shortness of breath or dyspnea on exertion No hypoxia remains in room air no fever chills or cough. Insists to on discharged home today. Explained to patient -he is admitted with alcohol intoxication blood alcohol level 89, and next 24-48 hours as his blood alcohol level continues to decline he may experience severe alcohol withdrawal symptoms which can lead him back into rapid irregular heartbeat, syncope/passing out, shortness of breath, risk for withdrawal seizure, Not safe to be discharged home/needs continued inpatient stay for 1-2 days for treatment of withdrawal/detoxification Patient understands the risk, but adamant about being discharged against medical Patient signed AMA paper, is alert awake and oriented x3, answering question appropriately, aware that he is making a poor judgment call/risking his health- leaving hospital too early . Review of Systems Review of Systems: All systems reviewed & are unremarkable except as noted in HPI & below Constitutional: no fever and no chills Respiratory: no cough and no dyspnea Cardiovascular: no chest pain, no orthopnea, no palpitations, no lightheadedness and no syncope Psychiatric: + substance abuse (Alcohol abuse) Physical Exam Constitutional: WD/WN, vitals as above Eyes: PERRL, conjunctivae normal, anicteric sclerae ENMT: external ear and nose normal, oropharynx normal Neck: trachea midline, no thyromegaly Respiratory: normal respiratory effort, lungs clear to auscultation Cardiovascular: RRR, no murmur, no edema Gastrointestinal (Abdomen): normal bowel sounds, soft, nontender, no hepatosplenomegaly Musculoskeletal: no cyanosis or clubbing, extremities motor strength 5/5 Skin: no rashes, warm and dry Neurologic: PERRL, EOMI, accommodation nl, no face palsy, no dysarthria Psychiatric: Orientation: alert and oriented x 3 Motor Behavior: + tremor Affect: + flat affect Results & Data Results & Data ([facility]) Vital Signs (Past 12 Hours) Vital Signs Temp Pulse Pulse Resp BP Pulse Ox 07/27/20 14:05 36.6 C 61 20 154/102 H 97 07/27/20 11:42 36.6 C 61 20 154/102 H 97 07/27/20 08:01 36.8 C 78 20 136/83 96 07/27/20 08:00 88
--- NOTE | 2020-07-27 16:54 | Discharge Summary ---
Date of Service July 27, 2020 Admission HPI Per Admitting Provider DICTATED BY: Garry Mariee MD DATE OF ADMISSION: 07/27/2020 CHIEF COMPLAINT: Syncope, rapid atrial fibrillation HISTORY OF PRESENT ILLNESS: A 35-year-old male with no significant past medical history, ongoing alcoholism, drinks 2 drinks every day for last 5-6 years, today drank 2 beers and also 2 mixed drinks. After that he ate a cake, then he put some gummies in his mouth and the next thing he knows was EMS waking him up. He lives with his parents. The parents called EMS. He do not know how long he was on the floor. As per the EMS they noticed some of gummies in the throat and they tried to give Narcan. He woke up even before the Narcan was given. The patient denies any drug abuse. Denies any seizure-like activity, no biting of tongue, no incontinence of urine or stools. The patient since last 1 week he was feeling a little bit fatigued, weak, has some mild headache. Currently in the ER, he was found to be in rapid afib, heart rate in 160s, when he came in. Received IV Cardizem and went back to sinus rhythm. Denies any palpitations, no chest pain, no blurred vision, no double vision, no earache, no runny nose, no sore throat, no loss of sense of smell or taste. No cough, no shortness of breath. Appetite is okay. Denies any exposure to COVID patients. No nausea, no vomiting, no abdominal pain. Normal bowel and bladder movements. No rash. Currently resting comfortably. Principal Diagnosis Alcohol intoxication/withdrawal Paroxysmal rapid A. fib RVR in the setting of alcohol intoxication/acute hypoxia secondary to airway obstruction Patient left AGAINST MEDICAL ADVICE Discharge Exam Constitutional WD/WN, vitals as above Eyes PERRL, conjunctivae normal, anicteric sclerae ENMT external ear and nose normal, oropharynx normal Neck trachea midline, no thyromegaly Respiratory normal respiratory effort, lungs clear to auscultation Cardiovascular RRR, no murmur, no edema Gastrointestinal (Abdomen) normal bowel sounds, soft, nontender, no hepatosplenomegaly Musculoskeletal no cyanosis or clubbing, extremities motor strength 5/5 Skin no rashes, warm and dry Neurologic PERRL, EOMI, accommodation nl, no face palsy, no dysarthria Psychiatric Orientation: alert and oriented x 3 Motor Behavior: + tremor Affect: + flat affect Discharge Data Allergies Allergy/AdvReac Type Severity Reaction Status Date / Time No Known Allergies Allergy Mild Unverified 07/26/20 23:02 Consultations 07/27/20 00:20 ED Decision to Admit Stat 07/27/20 02:12 Consult Case Management - Discharge Planning Routine 07/27/20 08:00 Consult Cardiology Routine Ordered Studies 07/26/20 22:50 CT head/brain wo con Urgent Hospital Course (1) Syncope and collapse: Patient syncopized at home while intoxicated after drinking alcohol heavily, had food/gummy bear in his mouth, that blocked his airway acutely Causing hypoxia, irregular rapid A. fib/A. fib RVR heart rate was in 170 as per medics Patient regained consciousness as paramedics able to remove obstruction/Gummies from his airway. In the ER patient remained in A. fib, converted to normal sinus with 1 dose of IV Cardizem The floor patient remained in sinus with heart rate between 70low 100s. Rapid A. fib RVR Episode of paroxysmal A. fib, possibly secondary to alcohol withdrawal, acute hypoxia secondary to airway obstruction. Normal sinus rhythm at present Echocardiogram shows no cardiomyopathy, normal LV function, normal wall motion, no valve pathology Patient did not had any episodes of recurrence of A. fib since admission Appreciate input from cardiology Patient started on metoprolol No indication for anticoagulation Patient will need to follow-up at agrees with cardiology clinic in 2 weeks for security monitor/zio patch Cardiology follow-up in 1 month to discuss report of security monitor Patient left AGAINST MEDICAL ADVICE Alcohol abuse/intoxication/alcohol withdrawal Admitted with alcohol intoxicated status with blood alcohol level 89 Patient started with [facility] alcohol withdrawal protocol. Left AGAINST MEDICAL ADVICE within 24 hours of admission Total Time Total Time Spent Total Time Spent (In Minutes): 30 minutes Total Time Includes: Examination of the Patient, Discharge Planning, Medication Reconciliation and Communication With Other Providers Discharge Plan Discharge Items Patient Disposition: Against Medical Advice Reason For Visit: SYNCOPE, RAPID A-FIB Activity: Resume your previous activity Non-emergency contact: Primary Care Provider Follow-up/Referrals: Lebron Sanders DO [[employer]] - (Clinic follow-up in 2 weeks for security monitor/) Scooter Murphy MD [Primary Care Provider] - (Hospital Follow up in a week . Office will call with appointment) [employer] Compensation Supervisor Provider Instructions: Need to follow-up at cardiology office in 2 weeks to schedule cardiac monitoring/Zio monitor for further assessment-regular fast heartbeat Cardiology will arrange clinic visit in a month the result of Zio Patch /security monitor Pending Studies at Discharge: No Stand-Alone Forms: [facility] [employer], Smoking Cessation Medications and DC Order Prescriptions: New metoprolol succinate 25 mg tablet extended release 24 hr 25 mg PO DAILY Qty: 30 RF: 1 Discharge Orders: Left Against Medical Advice (Routine); Ordered 07/27/20 Ordered By: Jenniffer Escobar Admission Data Admit Date/Time: 07/27/20 01:40 Attending Provider: Jenniffer Escobar Admit Provider: Garry Mariee Primary Care Provider: Scooter Murphy Other Providers: Garry Mariee ; Lebron Sanders Other Interventions: Discharge Summary Assessment (RN) Last Done: 07/27/20 14:05
[2020-07-28] MEDS ORDERED: GABAPENTIN 600 MG TAB PO SCH
[2020-07-28] MEDS ORDERED: METOPROLOL SUCC 25MG EXT REL TAB PO SCH (09:00)
[2020-07-29] MEDS ORDERED: GABAPENTIN 600 MG TAB PO SCH (04:00)
[2020-07-30] MEDS ORDERED: GABAPENTIN 600 MG TAB PO SCH (16:00)
== END 2020-07-27 14:15 | disposition left against medical advice (07) | DRG 894 ==
LOC: ED 22:32 → 2S 07-27 01:40